=== PATIENT | female | born 1965 | race American Indian/Alaskan Native ===

== ENCOUNTER 2019-04-15 12:40 | Emergency (ER) | payer MEDICAID ==
--- NOTE | 2019-04-15 12:52 | Event Note ---
ED Screening Note ED Screening Note: had iv placed r arm at [facility] on sun now swelling of rue hx lupus shogrens CVA diverticu r hip replacement This initial assessment/diagnostic orders/clinical plan/treatment(s) is/are subject to change based on patients health status, clinical progression and re- assessment by fellow clinical providers in the ED. Further treatment and workup at subsequent clinical providers discretion. Patient/guardian urged not to elope from the ED as their condition may be serious if not clinically assessed and darwin marie. Initial orders include: us ro dvt
--- NOTE | 2019-04-15 15:04 | Vascular Lab Report ---
PROCEDURE: VL VENOUS DUPLEX UE RT TECHNIQUE: Grayscale, color flow and spectral waveform images were obtained of right upper extremity . HISTORY: r arm pain COMPARISON: None FINDINGS: There is no deep venous thrombosis seen in the right upper extremity. Flow is demonstrated by color flow and spectral waveform imaging. There is appropriate wall compression and augmentation. There is no superficial venous thrombus seen. IMPRESSION: There is no evidence for deep or superficial venous thrombus in right upper extremity. This document is electronically signed by Barbara Munoz MD., April 15 2019 03:02:44 PM ET
--- NOTE | 2019-04-15 15:28 | Emergency Department Report ---
HPI - General Chief Complaint: Extremity Problem,Nontraumatic Time Seen by Provider: 04/15/19 12:51 - HPI HPI: This is a 53-year-old female who presents to ED complaining of swelling in in pain to her right forearm 2 days ago. Patient states that she was seen at [facility] and another IV placed in her vein which causes her bruising from the site. Patient states since she's been having throbbing pain to the IV site as well as some left posterior neck pain. She denies trauma injuries to the right hand. ED Past Medical Hx - Past Medical History Previous Medical History?: Yes Hx Hypertension: Yes (2008) Hx CVA: Yes Hx GERD: Yes Hx Arthritis: Yes (RIGHT HIP) Additional medical history: lupus. MRSA. Sjogrens syndrome - Surgical History Past Surgical History?: Yes Hx Breast Surgery: Yes (BR REDUCTION 02/02;) Additional Surgical History: right hip replacement. hysterectomy - Social History Smoking Status: Never Smoker - Medications Home Medications: Home Medications Medication Instructions Recorded Confirmed Last Taken Type Lisinopril [Zestril] 20 mg PO QDAY 02/13/14 06/04/14 02/16/14 07:30 History amLODIPine [Norvasc] 5 mg PO DAILY 02/13/14 06/04/14 02/16/14 07:30 History Hydroxychloroquine [Plaquenil] 400 mg PO QDAY 06/04/14 06/04/14 Unknown History Cyclobenzaprine [Flexeril] 10 mg PO QHS PRN #20 tablet 04/15/19 Unknown Rx ED Review of Systems ROS: Stated complaint: HAND SWOLLEN Other details as noted in HPI Constitutional: denies: chills, fever Eyes: denies: eye pain, eye discharge, vision change ENT: denies: ear pain, throat pain Respiratory: denies: cough, shortness of breath, wheezing Cardiovascular: denies: chest pain, palpitations Endocrine: no symptoms reported Gastrointestinal: denies: abdominal pain, nausea, diarrhea Genitourinary: denies: urgency, dysuria, discharge Musculoskeletal: denies: back pain, joint swelling, arthralgia Skin: denies: rash, lesions Neurological: denies: headache, weakness, paresthesias Psychiatric: denies: anxiety, depression Hematological/Lymphatic: denies: easy bleeding, easy bruising Physical Exam - Physical Exam General: GENERAL: Alert and oriented x3, no apparent distress, Normal Gait, atraumatic. HEAD: Head is normocephalic and a-traumatic. EXTREMITIES/MUSCULOSKELETAL: No cyanosis, clubbing, rash, lesions or edema. Full ROM bilaterally. Radial and brachial Pulses 2+ bilaterally. UE 5+ strength bilaterally, 5-6 cm phlebitis/ecchymoses seen right antecubital region. No dislocation seen or deformity seen of the right hand NEUROLOGIC: The patient is cooperative with no focal neurologic deficits. SKIN: Warm and dry, No lesions, No ulceration or induration present. ED Medical Decision Making - Medical Decision Making This 53-year-old female presents with phlebitis of the right arm. arthralgia right hand. Vital signs are normal patient is in no acute distress. Discussed the patient to follow up with primary care physician. Discussed ecchymoses would resolve on its own Critical care attestation.: If time is entered above; I have spent that time in minutes in the direct care of this critically ill patient, excluding procedure time. ED Disposition Clinical Impression: Phlebitis after infusion Disposition: DC-01 TO HOME OR SELFCARE Is pt being admited?: No Does the pt Need Aspirin: No Condition: Stable Instructions: Superficial Thrombophlebitis (ED), Trigger Point Pain (ED), Arthralgia (ED) Additional Instructions: Make sure to follow up with the primary care physician as discussed. Take all your medications as you've been prescribed. If you have any worsening symptoms or develop new symptoms please return to ED immediately. Prescriptions: Cyclobenzaprine [Flexeril] 10 mg PO QHS PRN #20 tablet PRN Reason: Muscle Spasm Referrals: TINO STINSON SR, MD [Primary Care Provider] - 3-5 Days Forms: Accompanied Note, Work/School Release Form(ED) Time of Disposition: 16:03
[2019-04-15 16:25] VITALS: BP 161/89
== END 2019-04-15 16:19 | disposition home or self-care (01) ==
LOC: ED 12:40
DX: I80.8 Phlebitis and thrombophlebitis of other sites (principal); I10 Essential (primary) hypertension; K21.9 Gastro-esophageal reflux disease without esophagitis; M13.851 Other specified arthritis, right hip; M35.00 Sjogren syndrome, unspecified; Z86.73 Personal history of transient ischemic attack (TIA), and cerebral infarction without residual deficits; Z98.890 Other specified postprocedural states; Z90.710 Acquired absence of both cervix and uterus; Z96.641 Presence of right artificial hip joint
CPT/HCPCS: 99283